=== PATIENT | female | born 1960 | race Caucasian/White ===

== ENCOUNTER → 2017-12-14 10:54 | Outpatient (CLI) | payer OTHER, SELFPAY ==
--- NOTE | 2017-12-14 10:57 | RAD_ITS ---
STUDY: X-RAY - LEFT KNEE REASON FOR EXAM: Female, 57 years old. Chronic pain TECHNIQUE: 4 view(s) of the knee. COMPARISON: None. FINDINGS: Normal visualized distal femur. Normal visualized proximal tibia and fibula. Normal proximal tibiofibular articulation. There is no demonstrated fracture. Normal medial femorotibial compartment. Normal lateral femorotibial compartment. Normal patellofemoral articulation. There is a soft tissue prominence in the suprapatellar region suggesting a small volume joint effusion. The soft tissue structures are unremarkable. RAD/Knee 4 or More Views IMPRESSION: Possible small effusion, otherwise negative. Electronically Signed: Jonathan Roberts MD at 16:54 EDT , Service support ,
== END ==
PROVIDERS: Family Provider Family Medicine; PCP Family Medicine; Visit Provider Family Medicine
DX: M25.562 Pain in left knee (principal)
CPT/HCPCS: 73564

== ENCOUNTER → 2017-12-16 14:55 | Outpatient (CLI) | payer OTHER, SELFPAY ==
--- NOTE | 2017-12-16 15:02 | VDLE_ITS ---
Reason For Study: LLE pain (knee) RIGHT LEFT CFV is compressible, spontaneous, phasic, GSV is normal. competent and demonstrates normal CFV is compressible, spontaneous, phasic, augmentation. competent, and demonstrates normal Procedure augmentation. Exam performed in department. FV is compressible, spontaneous, phasic, The exam was diagnostic. competent and demonstrates normal A preliminary report was called and/or faxed augmentation. to Dr. Eugene @ 3:30 pm @ [phone]. POP V is compressible, spontaneous, phasic, competent and demonstrates normal augmentation. T/P Trunk is compressible. PTV is compressible. LT PerV is compressible. Interpretation Summary Deep veins of the left lower extremity are patent and compressible segmentally. There is no evidence of left lower extremity deep vein thrombosis. Valvular competence appears intact within the proximal deep venous system on the left . The left greater saphenous vein appears patent and compressible segmentally. Ordering Physician: Mk Eugene Referring Physician: Davi Eugene Performed By: Adina Bryson, UZAIR, RVT
== END ==
PROVIDERS: Family Provider Family Medicine; PCP Family Medicine; Visit Provider Family Medicine
DX: M25.562 Pain in left knee (principal)
CPT/HCPCS: 93971

== ENCOUNTER 2017-12-17 15:35 | Emergency (ER) | payer OTHER, SELFPAY ==
[2017-12-17 15:36] VITALS: BP 168/84; PULSE 77; RESP 18; TEMP 37.2; O2SAT 99; BMI 32.5
[2017-12-17] MEDS: Triamcinolone Acetonide 40 MG/ML Vial IU (16:37)
[2017-12-17 16:38] VITALS: BP 135/75; PULSE 82; RESP 14; O2SAT 99
--- NOTE | 2017-12-17 17:02 | ED.VISSUMM ---
- ER Visit Summary Date of Service: 12/17/17 Chief Complaint: Atraumatic left knee pain History of Present Illness: The patient is a 57 F no significant past medical except for a prior DVT. Currently on no blood thinners or any other medication. She has had atraumatic left knee pain and swelling for about 2 months. Getting worse. No redness or fever. No trauma. No prior MRI. Follow-up your primary care physician had a negative leg ultrasound showed no DVT. An x-ray of her left knee which show joint space narrowing and small effusion. Physical Examination: Appearing middle-aged female. Vital signs are stable she is afebrile she does not look septic or toxic no acute distress. H EENT exam unremarkable lungs clear to auscultation. Heart regular rhythm no murmur. Abdomen soft nontender. She is moving all 4 extremities. Neurovascular intact. She is moving mild swelling in her left knee. No redness or warmth. There is a small effusion. She can do full flexion-extension. Dorsi plantar flexion intact. Hips nontender. Left foot is neurovascular intact. Ligaments are intact. Test Results: I reviewed patient's x-ray from several days ago. Basically she is joint space narrowing and a small effusion. No acute bony abnormalities. Her x-ray is consistent with chronic wear and tear and arthritis. Emergency Department Course and Treatment: Discussed with the patient and her . We did a knee joint injection of her left knee on the medial aspect. The area was cleaned thoroughly multiple times with alcohol swabs. I injected 10 cc of 40 mg of Kenalog and also about 10 cc of lidocaine. Patient tolerated procedure well. She was warned of any signs of infection return. Treatment Plan: Ice and elevate. Limited activity. Motrin for pain and inflammation. She will follow up with Dr. Noam Read of orthopedics. Disposition: Discharge Impression: Atraumatic left knee swelling and effusion Degenerative joint disease Knee joint injection with Kenalog and lidocaine by ER This note was generated with [employer] dictation software. It may contain incorrect words, spelling, and punctuation that were not noted in review of the chart prior to signing ED Disposition - Plan for ED Patient: Chief Complaint: Other, Pain/Inj Referrals: Davi Eugene MD [Primary Care Provider] -
--- NOTE | 2017-12-17 17:05 | ED.DCSUM_ITS ---
- ER Visit Summary Date of Service: 12/17/17 Chief Complaint: Atraumatic left knee pain History of Present Illness: The patient is a 57 F no significant past medical except for a prior DVT. Currently on no blood thinners or any other medication. She has had atraumatic left knee pain and swelling for about 2 months. Getting worse. No redness or fever. No trauma. No prior MRI. Follow -up your primary care physician had a negative leg ultrasound showed no DVT. An x-ray of her left knee which show joint space narrowing and small effusion. Physical Examination: Appearing middle-aged female. Vital signs are stable she is afebrile she does not look septic or toxic no acute distress. H EENT exam unremarkable lungs clear to auscultation. Heart regular rhythm no murmur. Abdomen soft nontender. She is moving all 4 extremities. Neurovascular intact. She is moving mild swelling in her left knee. No redness or warmth. There is a small effusion. She can do full flexion-extension. Dorsi plantar flexion intact. Hips nontender. Left foot is neurovascular intact. Ligaments are intact. Test Results: I reviewed patient's x-ray from several days ago. Basically she is joint space narrowing and a small effusion. No acute bony abnormalities. Her x-ray is consistent with chronic wear and tear and arthritis. Emergency Department Course and Treatment: Discussed with the patient and her . We did a knee joint injection of her left knee on the medial aspect. The area was cleaned thoroughly multiple times with alcohol swabs. I injected 10 cc of 40 mg of Kenalog and also about 10 cc of lidocaine. Patient tolerated procedure well. She was warned of any signs of infection return. Treatment Plan: Ice and elevate. Limited activity. Motrin for pain and inflammation. She will follow up with Dr. Noam Read of orthopedics. Disposition: Discharge Impression: Atraumatic left knee swelling and effusion Degenerative joint disease Knee joint injection with Kenalog and lidocaine by ER This note was generated with [employer] dictation software. It may contain incorrect words, spelling, and punctuation that were not noted in review of the chart prior to signing ED Disposition - Plan for ED Patient: Chief Complaint: Other, Pain/Inj Referrals: Davi Eugene MD [Primary Care Provider] -
--- NOTE | 2017-12-17 17:05 | ED.DEP ---
ED Disposition - Plan for ED Patient: Disposition: Home or Assisted Living Chief Complaint: Other, Pain/Inj Instructions: ED Degenerative Joint Disease Referrals: Naom Read DO [STAFF PHYSICIAN] - 1-2 Weeks Additional Instructions: Ice and elevate left knee to decrease swelling. Motrin for pain and decrease swelling. Call and follow-up with an orthopedic physician.
== END 2017-12-17 17:34 | disposition home or self-care (01) ==
PROVIDERS: Emergency Provider Emergency Medicine; Family Provider Family Medicine; PCP Family Medicine
DX: M17.12 Unilateral primary osteoarthritis, left knee (principal); Z86.718 Personal history of other venous thrombosis and embolism
CPT/HCPCS: 20610; 96374; 99281

== ENCOUNTER → 2018-01-03 15:32 | Outpatient (CLI) | payer OTHER, SELFPAY ==
--- NOTE | 2018-01-03 15:51 | MRI_ITS ---
STUDY: MRI LEFT KNEE REASON FOR EXAM: Female, 57 years old. Pain. TECHNIQUE: Standardized fat and water weighted pulse sequences were obtained in all 3 orthogonal planes. COMPARISON: X-ray December 14, 2017 FINDINGS: There is medial meniscus tear of the posterior horn adjacent to the meniscal root ligament, series 7 image 03/04. Normal hyaline cartilage of the medial femorotibial compartment. Normal medial femoral condyle and tibial plateau. There is a partial sprain of the MCL with interstitial and periligamentous edema. Normal distal semimembranosus, gracilis and semitendinosus tendons. Normal lateral meniscus. Normal hyaline cartilage of the lateral femorotibial compartment. Normal lateral femoral condyle and tibial plateau. Normal proximal tibiofibular articulation. Normal lateral collateral (fibular) ligament. Normal popliteus tendon. Normal biceps femoris tendon. Normal anterior cruciate ligament (ACL). Normal posterior cruciate ligament (PCL). Normal congruent patellofemoral articulation. Normal hyaline cartilage of the patellofemoral compartment. Normal medial and lateral patellar retinaculum. Normal quadriceps tendon. Normal patellar tendon. Normal Hoffa's fat pad. There is a small volume joint effusion. There is a Mcneill's cyst. The soft tissues are unremarkable. The otherwise visualized osseous structures are unremarkable. MRI/Lower Ext Joint Only (Routine) IMPRESSION: Medial meniscus tear Medial collateral ligament sprain Joint effusion with popliteal cyst Electronically Signed: Juan Crawford MD at 20:51 EDT , Service support ,
== END ==
PROVIDERS: Family Provider Family Medicine; PCP Family Medicine; Referring Provider Family Medicine; Visit Provider Family Medicine
DX: M25.562 Pain in left knee (principal)
CPT/HCPCS: 73721

== ENCOUNTER → 2018-04-30 10:52 | Outpatient (CLI) | payer OTHER, SELFPAY ==
--- NOTE | 2018-04-30 10:58 | BI_ITS ---
MAMMOGRAPHY - BILATERAL SCREENING REASON FOR EXAM: Female, 57 years old. Routine annual screening examination. PERTINENT HISTORY: Non-contributory. History of prior right stereotactic breast biopsy. TECHNIQUE: Digital bilateral breast oyel (3D mammographic acquisition) in the CC and MLO projections. 2-D mediolateral oblique (MLO) and craniocaudad (CC) views of both breasts were obtained. CAD: Full Field Digital Mammography with Computer Added Detection was performed. COMPARISON: Comparison is made with prior study dated March 15, 2017 and February 17, 2016. FINDINGS: Breast Composition: The breasts are heterogeneously dense, which may obscure small masses. There are no dominant masses or suspicious calcifications. Tissue clip marker is seen in the upper lateral portion of the right breast. No other significant abnormalities are identified. There has been no significant change since the prior study. BI/SCREENING MAMM (CAD), BILAT IMPRESSION: Stable bilateral screening mammogram. Yearly follow-up mammogram recommended. (A) ASSESSMENT CATEGORY: BIRADS Category 1: Negative. A letter regarding these results will be sent to the patient by the facility within 30 days. Approximately 10% of breast cancers are not detected by mammography. A normal mammogram should not delay biopsy of a clinically suspicious abnormality. [id number] Electronically Signed: Edson Castorena MD at 9:48 EST , Service support ,
== END ==
PROVIDERS: Family Provider Family Medicine; PCP Family Medicine; Referring Provider Family Medicine; Visit Provider Family Medicine
DX: Z12.31 Encounter for screening mammogram for malignant neoplasm of breast (principal)
CPT/HCPCS: 77063; 77067

== ENCOUNTER → 2018-08-26 08:40 | Outpatient (CLI) | payer OTHER, SELFPAY ==
[2018-08-26 10:18] LABS: Hematocrit 39.9 % (37-47); Mean Corp Hgb Conc 32.6 g/gl (32-36); Mean Corpuscular Hgb 29.3 pg (27.0-32.0); Mean Corpuscular Volume 90.1 fL (81-99); Platelet Count 264 K/mm3 (150-450); RBC Distribution Width CV 12.8 % (11.6-14.6); RBC Distribution Width SD 42.2 fl (35.1-43.9); Red Blood Count 4.43 M/mm3 (4.2-5.4); White Blood Count 6.3 K/mm3 (4.4-11.0)
[2018-08-26 10:20] LABS: Prothrombin Time (Protime)PT. 12.5 SECONDS (11.7-14.9)
[2018-08-26 10:21] LABS: Scan Indicated on CBC? Y/N NO
[2018-08-26 10:40] LABS: Anion Gap 4 (5-15); BUN 15 mg/dL (7-18); Calcium,Total 9.1 mg/dL (8.5-10.1); Chloride 108 mmol/L (98-107); Creatinine, Serum 0.75 mg/dL (0.55-1.02); EST Glomerular Filtration Rate 84 mL/min (>60); Est Glom Filt Rate - Afr Amer 101 mL/min (>60); Glucose 89 mg/dL (74-106); Potassium 5.1 mmol/L (3.5-5.1); Sodium Level 142 mmol/L (136-145)
== END ==
PROVIDERS: Family Provider Family Medicine; PCP Family Medicine; Referring Provider Family Medicine; Visit Provider Family Medicine
DX: Z01.818 Encounter for other preprocedural examination (principal)
CPT/HCPCS: 36415; 80048; 85027; 85610; 85730

== ENCOUNTER 2018-09-02 06:01 | Day surgery (SDC) | payer OTHER, SELFPAY ==
[2018-09-02 06:33] VITALS: BP 132/77; PULSE 79; RESP 18; TEMP 36.9; O2SAT 99; BMI 33.3
--- NOTE | 2018-09-02 07:16 | PCM.HP.BLA ---
History and Physical Date of Admission: 09/02/18 Intake Intake Visit Reasons: left knee Allergies No Known Allergies Allergy (Verified 12/17/17 16:38) Medications NK 12/17/17 [History Confirmed 12/17/17] [facility] Social History Smoking Status: Never smoker HPI left knee: Details: Parts of this documentation were recorded by a scribe, this documentation accurately reflects the service provided and the decisions made by me, Myranda Corley, DO 08/16/18 1232. RACHAEL ROMERO is a 57 year old F new patient here today for left knee. States she has had knee pain since December 2017. Patient has x-rays and MRI completed in 01/2018. Has medial sided tenderness. Has stiffness of her knee, denies any painful/popping/clicking. Does feel that he knee gives out occasionally. Denies any surgery. Denies numbness, tingling or other associated symptoms. Has had 2 steroid injections 1 in December 2017 and the 2nd in 03/[address] Queen. States the injections where helpful for 3 months the first time and 5 months with the second injection. Denies any PT. Has tried OTC braces but does not feel they are helpful. Does use ice which is helpful. Does take Aleve. Denies any Mobic. Does report having a bakers cyst. Had a pulmonary embolism in 2002 was treated with Coumadin and then has had no concerns since. ROS Const Reports system reviewed and no additional complaints, except as docu Eyes Reports system reviewed and no additional complaints, except as docu ENT Reports system reviewed and no additional complaints, except as docu Card Reports system reviewed and no additional complaints, except as docu Resp Reports system reviewed and no additional complaints, except as docu GI Reports system reviewed and no additional complaints, except as docu Musc Reports as per HPI Skin/Breast Reports system reviewed and no additional complaints, except as docu Neuro Yes system reviewed and no additional complaints, except as docu Psych Reports system reviewed and no additional complaints, except as docu Endo Reports system reviewed and no additional complaints, except as docu Kameron/Lymph Reports system reviewed and no additional complaints, except as docu Aller/Immun Reports system reviewed and no additional complaints, except as docu I have re-examined the patient. There are no clinical changes since date of exam. Ortho Exam Left Knee Skin/Wound: No ecchymosis, No erythema Examination: Yes med jt line tenderness, Yes Pain with flexion, Yes Raymond's Test, No TTP Patellar tendon, Yes TTP Pes Anserine Stability: NML: Anterior Drawer, NML: Posterior Drawer, NML: Varus 30, 1+: Valgus 30 Assessment & Plan Problems 1. Derangement of posterior horn of medial meniscus of left knee M23.322 2. Synovial cyst of left popliteal space M71.22 Plan Personally reviewed patients left knee MRI which showed a posterior meniscal root tear and a bakers cyst. See imaging report in chart for further details. Educated the patient about the anatomy of the knee and etiology of her pain. Spoke with her about her meniscus tear and the surgery procedure. Spoke with her about other conservative options- injections, physical therapy or bracing. Explained that she might be a candidate for a mensicus repair depending on the appearance of the meniscus of surgery. She will be toe touch weightbearing for 6 weeks if she has a meniscus repair. She might continue to have achiness due to osteoarthritis. Spoke with her about the risks of multiple steroid injections. She wished to proceed with knee arthroscopy. Reviewed the pre-operative plans with the patient. Risks and benefits of the procedure were fully explained, including but not limited to infection, neurovascular injury, continued pain, arthritis, stiffness, need for further surgery, re-injury, DVT, PE, general risks of anesthesia, and loss of limb or life. The patient understands all the risks and does wish to proceed with written consent. Needs postop anticoagulation. will discuss with pcp about lovenox psotop d/t PE. Follow up on an as needed basis or sooner if pain, swelling, numbness or associated symptoms, or concerns develop. All questions answered. Patient in agreement of plan. Coding Level of Care Code Off vis,new,level 3 Diagnoses Derangement of posterior horn of medial meniscus of left knee M23.322 Synovial cyst of left popliteal space M71.22 Laterality: left
--- NOTE | 2018-09-02 07:22 | DCINST_ITS ---
Discharge Diet: No Restrictions - wbat left LE, remove dressings in 4 days and apply bandaids to incision sites, may get incision wet after 4 days, call with concerns, follow up in 2 weeks Discharge Activity: May Not Drive May shower in (days): 1 Ice area for (Minutes): 20 - Every hour while awake. Weight Bearing Status: Weight bearing as tolerated Keep extremity elevated above heart level: Operative Extremity Call your doctor if your incision/area has: Continuous Slow Oozing, Sudden Increased Bleeding, Increased Pain/ Swelling, Increased Redness, Foul Smelling Discharge Call your doctor if you observe: Fever of 101 or Higher, Coldness, Increased Pain, Numbness or Tingling, Change in Color, Calf discomfort Allergies/Adverse Reactions: Allergies No Known Allergies Allergy (Verified 08/24/18 09:02) Medications to take at Discharge Hydrocodone Bitart/Apap 5-325 [[place] 5MG-325MG] 1 - 2 tablet PO Q6H PRN PRN 5 Days #40 tablet 09/02/18 The following prescriptions were given: Hydrocodone Bitart/Apap 5-325 [[place] 5MG-325MG] 1 - 2 tablet PO Q6H PRN PRN 5 Days #40 tablet PRN Reason: Pain Primary Care Physician: Davi Eugene MD [Primary Care Provider] - Test Results: Test results from this visit will be discussed in further detail at your follow- up appointment, if applicable. Please Follow Up With: Myranda Corley, - [phone]
--- NOTE | 2018-09-02 07:22 | PCM.OPRPT ---
Report of Operation Date of Procedure: 09/02/18 Pre-Operative Diagnosis: left knee medial meniscus tear, osteoarthritis, synovitis Post-Operative Diagnosis: same Surgery/Procedure Performed:: salk, pmm, extensive synovectomy, patella chondroplasty chain sales consultant: Yuri Ravi Type of Anesthesia:: General Anesthesiologist: Matt Epps Estimated Blood Loss (mL): none Fluids Replaced: 800cc lr Description of Procedure: Preoperative note Patient is a 57-year-old female with continued left knee pain and clicking and instability. MRI confirms medial meniscus tear is some arthritis. Patient failed conservative treatment like to proceed with left knee arthroscopy. Risks benefits and alternatives surgery discussed with patient. Risks including but not limited to blood loss, blood clot, infection, neurovascular, failure procedure, need for revision surgery, loss of life and loss of limb. Patient is aware like proceed with left knee arthroscopy repair is indicated. Operative note next Patient seen and examined preoperative failure. The left knee was marked. Patient brought to the operating room placed supine the operating table. Signing, anesthesia, antibiotics were administered. The left knee was prepped and draped in usual sterile fashion with a tourniquet around her upper thigh. Marked out our portal placements left leg was then elevated exsanguinated tourniquet tourniquet was raised her pressure 250 torr. Timeout was performed. We then created an anterior lateral portal and began our diagnostic arthroscopy. We are able to visualize patellofemoral joint had some grade 2 fibrillated changes on the inferior pole of patella. We are unable to get easily into the medial joint line due to the effusion large plica and synovitis in the anterior medial and anterior lateral recesses of the and anterior medial aspect of the knee. We then repositioned into the notch is a trocar to get back into the medial side of the joint. We then created an anterior medial portal under direct visualization again this is difficult secondary to the amount of synovitis the patient had. We used a shaver to resect back the extensive synovitis in the anterior medial anterior lateral recesses. We took pictures of the medial lateral gutters there were no loose bodies. We then probed the posterior horn of the medial meniscus which was unstable but the actual root was intact and stable to probing the tear was just medial to the root we use a combination of a basket and a shaver to debride back the meniscus to a stable rim we then reinserted a shaver into the need to probe the meniscus to confirm that it was still stable to probing which it was. We there is some irritation in the posterior aspect of the some redness that we did ablate to prevent further leakage of the knee fluid out into the back of the knee which was causing her Mcneill's cyst. The ACL and PCL were present within the notch. Her lateral meniscus was intact stable probing. She had a central area in her lateral tibial plateau grade 2 fibrillated changes her medial arm starting her lateral femoral condyle was intact and stable probing. Her medial femoral condyle had grade 3 thinning of the cartilage throughout the entirety there was a small area that was denuded to bone secondary fact that she had arthritic changes and since then cartilage throughout we decided not to microfracture at this time. She also had grade 3 changes of her medial tibial plateau throughout worse in the centralized area and medial aspect of the medial tibial plateau. The knee was then irrigated with copious nonsterile saline we checked her patella chondroplasty synovitis synovectomy and medial meniscectomy to confirm that all were done to completion of her stable which they all were. Again the knee was irrigated with copious amounts of sterile saline the portals were closed with interrupted nylon shoulders were applied and tourniquet was deflated for total working time 32 minutes. Patient tolerated procedure well no complications transferred to recovery room in stable condition. Next Postoperative note Weight-bear as tolerated left leg Follow-up in 2 weeks Hospital has prescription Call with increased pain numbness tingling or further issues arise This note was generated with [employer] dictation software. It may contain incorrect words, spelling, and punctuation that were not noted in checking the note before signing.
[2018-09-02] MEDS: Cefazolin 2 GM in 0.9% Normal Saline 100 ML IV (07:28)
[2018-09-02] MEDS: Epinephrine (1 mg/ml) 1 MG/ML VIAL (07:45)
[2018-09-02] MEDS: Bupiv/Epi 0.25% 30 ML Vial (08:00)
[2018-09-02] MEDS: Mupirocin Ointment 22gm Tube 1 APPLIC (08:17)
[2018-09-02 08:30] VITALS: BP 132/77; BP 169/92; PULSE 89; RESP 16; TEMP 36.2; O2SAT 94
[2018-09-02 08:45] VITALS: BP 132/77; BP 137/75; PULSE 80; RESP 18; O2SAT 93
[2018-09-02 09:00] VITALS: BP 132/77; BP 135/85; PULSE 83; RESP 16; O2SAT 94
[2018-09-02 09:13] VITALS: BP 132/77; BP 132/79; PULSE 85; RESP 18; TEMP 36; O2SAT 95
[2018-09-02 12:38] VITALS: BP 118/68; BP 132/77; PULSE 67; RESP 16; TEMP 36.2; O2SAT 93
== END 2018-09-02 12:43 | disposition home or self-care (01) ==
LOC: SDC 06:01 → AC 06:04
PROVIDERS: Family Provider Family Medicine; PCP Family Medicine; Referring Provider Orthopaedic Surgery; Visit Provider Orthopaedic Surgery
PROC: (CPT 29870; principal; 2018-09-02 07:10)
DX: S83.242A Other tear of medial meniscus, current injury, left knee, initial encounter (principal); M17.12 Unilateral primary osteoarthritis, left knee; M71.22 Synovial cyst of popliteal space [Baker], left knee; M65.862 Other synovitis and tenosynovitis, left lower leg; X58.XXXA Exposure to other specified factors, initial encounter; Y93.9 Activity, unspecified; Y92.9 Unspecified place or not applicable; Y99.9 Unspecified external cause status; Z78.0 Asymptomatic menopausal state; Z86.711 Personal history of pulmonary embolism
CPT/HCPCS: 29876; 29881; J7120; J2405

== ENCOUNTER 2018-10-02 13:26 | Emergency (ER) | payer OTHER, SELFPAY ==
[2018-09-15 07:58] VITALS: BMI 33.3
[2018-10-02 13:27] VITALS: BP 163/84; PULSE 101; RESP 16; TEMP 36.7; O2SAT 95; BMI 32.8
--- NOTE | 2018-10-02 13:38 | ED.VIS.GEN ---
History of Present Illness <Noam Dubon - Last Filed: 10/02/18 14:14> Informant: Patient Onset: Days Narrative: Patient presents to the ED with left lower extremity swelling and left posterior calf pain for the last 3 days. She had a left knee arthroscopy done on September 02, [address] Ferguson for meniscal repair and Mcneill's cyst. She was concerned because her left calf feels tighter than normal. She did just start PT last week. She was concerned that she does have a history of lower extremity DVT with her last being in 2002. Denies any chest pain or shortness of breath. <Samantha Godoy - Last Filed: 10/02/18 14:20> Chief Complaint: Lower Extremity Injury Past Medical History <Noam Dubon - Last Filed: 10/02/18 14:14> Smoking Status: Never smoker <Samantha Godoy - Last Filed: 10/02/18 14:20> - Allergies and Home Meds Allergies/Adverse Reactions: Allergies No Known Allergies Allergy (Verified 08/24/18 09:02) Primary Care Physician: Davi Eugene MD [Primary Care Provider] - Review of Systems General: Denies: Chills, Fever, Sweats Eyes: Denies: Visual changes - bilaterally, Diplopia ENT: Denies: Rhinorrhea, Sore throat Cardiovascular: Denies: Chest pain, Palpitations Respiratory: Denies: Dyspnea, Cough, Dyspnea on exertion Gastrointestinal: Denies: Abdominal pain, Nausea, Vomiting, Diarrhea, Melena, Hematochezia Genitourinary: Denies: Dysuria, Hematuria, Frequency Musculoskeletal: Reports: Swelling, Extremity Pain. Denies: Back pain Skin: Denies: Rash, Wounds Neurological: Denies: Headache, Weakness, Numbness <Samantha Godoy - Last Filed: 10/02/18 14:20> Physical Exam Vital Signs/Narrative: Vital Signs Temp Pulse Resp BP Pulse Ox 10/02/18 13:27 98.0 F 101 H 16 163/84 H 95 <Noam Dubon - Last Filed: 10/02/18 14:14> Vital Signs/Narrative: Vital Signs Temp Pulse Resp BP Pulse Ox 10/02/18 13:27 98.0 F 101 H 16 163/84 H 95 General: Well nourished, Well developed, No Acute Distress Head: Normocephalic, Atraumatic Eyes: Perrl, EOMI ENT: Moist mucous membranes, No rhinorrhea Neck: Supple, Nontender Cardiovascular: Regular rate, Regular rhythm, No murmurs Respiratory: No distress, CTA bilaterally, Chest nontender Abdomen: Soft, Nontender, Nondistended, Normal bowel sounds Back: Nontender, Normal Inspection Extremities: Nontender, No edema, Calf Tenderness - L posterior, - - Mild asymmetric edema of the left lower extremity. No significant erythema. No palpable cords. Patient is tender to palpation over the left posterior proximal calf. DP and PT pulses 2+ bilaterally. Skin: Normal color, No rash Neurological: Alert, Oriented x3, Cranial nerves II-XII grossly intact, Normal Strength, Normal Sensation Psychological: Normal affect, Normal Mood <Samantha Godoy - Last Filed: 10/02/18 14:20> Diagnostic/Tx/Re-eval - Medical Decision Making As it was Wednesday, we did not have formal ultrasound available. The patient's compartments are soft. Her incisions are clean, dry, and intact. Pulses are normal. I did do a bedside ultrasound. Her entire venous system is compressible. I see no evidence of DVT. I have no clear indication for anticoagulation patient at this time. I am going to bring her back for formal ultrasound tomorrow. Patient is comfortable with this plan of care. <Noam Dubon - Last Filed: 10/02/18 14:14> - Medical Decision Making Patient presents to the ED with increased left lower extremity swelling for 3 days. She did have a left knee arthroscopy done on September 02. She is a history of DVT. Physical exam did show mild left lower extremity edema and some left proximal posterior calf tenderness. Bedside ultrasound done by Dr. Dubon shows no evidence of DVT. At this time, we feel patient does not warrant anticoagulation. She was given an order for an outpatient ultrasound and will return tomorrow for confirmation of no DVT. She was educated on signs/symptoms to return to the ED. She is provided discharge instructions. She is agreeable to plan. Disposition: Home stable Impression: Left lower extremity edema. Recent history of L knee arthroscopy. <Samantha Godoy - Last Filed: 10/02/18 14:20> ED Disposition <Noam Dubon - Last Filed: 10/02/18 14:14> <Samantha Godoy - Last Filed: 10/02/18 14:20> - Plan for ED Patient: Disposition: Home or Assisted Living Diagnosis: Left leg swelling Instructions: PERIPHERAL EDEMA, Unilateral Referrals: Davi Eugene MD [Primary Care Provider] - Additional Instructions: Return tomorrow to outpatient ultrasound
== END 2018-10-02 14:17 | disposition home or self-care (01) ==
PROVIDERS: Emergency Provider Physician Assistant; Family Provider Family Medicine; PCP Family Medicine
DX: R60.0 Localized edema (principal); M79.662 Pain in left lower leg; M79.89 Other specified soft tissue disorders; Z86.718 Personal history of other venous thrombosis and embolism
CPT/HCPCS: 99282

== ENCOUNTER → 2018-10-03 13:26 | Outpatient (CLI) | payer OTHER, SELFPAY ==
[2018-10-02 13:27] VITALS: BMI 32.8
--- NOTE | 2018-10-03 13:30 | VDLE_ITS ---
Reason For Study: Swelling RIGHT LEFT CFV is compressible, spontaneous, phasic, GSV is normal. competent and demonstrates normal CFV is compressible, spontaneous, phasic, augmentation. competent, and demonstrates normal Procedure augmentation. Exam performed in department. FV is compressible, spontaneous, phasic, A preliminary report was called and/or faxed competent and demonstrates normal to Dr. Eugene. augmentation. POP V is compressible, spontaneous, phasic, competent and demonstrates normal augmentation. T/P Trunk is compressible. PTV is compressible. LT PerV is compressible. Interpretation Summary Deep veins of the left lower extremity are patent and compressible segmentally. There is no evidence of left lower extremity deep vein thrombosis. Valvular competence appears intact within the proximal deep venous system on the left . The left greater saphenous vein appears patent and compressible segmentally. Ordering Physician: Noam Dubon Referring Physician: Mk Eugene Performed By: Ellie Hull RDCS, RVT
== END ==
PROVIDERS: Family Provider Family Medicine; PCP Family Medicine; Referring Provider Emergency Medicine; Visit Provider Emergency Medicine
DX: M79.89 Other specified soft tissue disorders (principal)
CPT/HCPCS: 93971

== ENCOUNTER 2018-11-15 15:30 | Outpatient (RCR) | payer OTHER, SELFPAY ==
[2018-09-15 07:58] VITALS: BMI 33.3
--- NOTE | 2018-09-23 07:55 | HP.PTEVAL ---
Patient's Visit Information RACHAEL ROMERO is a 57 year old F referred to Physical Therapy by Myranda Corley DO with a diagnosis of S/P L knee PMM repair. Date of Evaluation: 09/23/18 Physical Therapist: Isaiah Plata PT, ATC - Visit Plan Frequency: 2-3x /Week Duration: 4-6 Weeks Plan: L LE stretching and strengthening, balance and prorio ex's, core strengthening, bike, and HEP - Subjective Findings: DOS: 09/02/18. Pt reports she had a posterior medial meniscus repair performed. Pt reports she had an old softball injury that she thinks may have lead to this tear many years ago. Pt reports she had no restrictions placed on her after this surgery. Pt reports she is back to work now at [employer]. Pt reports she is now able to negotiate stairs receprocally. Pt reports her major complaint at this time is stiffness that still exists. No sleep difficulty at this time secondary to pain. Pt reports she walks her dogs daily, and notes she is unable to do that at this time. 1/10 pain at rest, 3/10 at worst (by the end of the day). - Pain L knee Pain Intensity (Out of 10): 1 Pain Intensity Range: 3 - Objective Neuro: B LE sensation is WNL to light touch. B achilles reflex= 2/3. girth at joint line: R knee 45 cm, L knee 48 cm. Palpation: Incisions are still healing. No obvious signs of infection. Mild swelling noted. ROM: R knee 0-125, L knee 0-12-85. MMT: R knee 5/5 throughout, L knee flex= 4-/5, ext= 3/5 - Goals Goal 1:: Decrease L knee pain x 50% to aid with increasing tolerance for ADL's Goal Time Frame: 4-6 Weeks Goal 2:: Increase L knee strength x 1 grade to aid with pt's tolerance for walking her dogs Goal Time Frame: 4-6 Weeks Goal 3:: Increase L knee ROM x 30 degrees to aid with restoring a more normalized gait pattern Goal Time Frame: 4-6 Weeks Goal 4:: I with HEP Goal Time Frame: 4-6 Weeks - Rehabilitation Potential Physical Therapy Diagnosis: Pt has L knee pain, weakness, and limited ROM secondary to L knee posterior medial meniscus repair Rehabilitation Potential: Good - Anticipated Interventions Patient/Client Instruction: Educate patient on: Condition, Plan of Care For the Purpose of:: To improve self management Therapeutic Exercise to Include: Strength training, Balance training, Flexibilty training, Passive ROM, Active ROM, Dynamic Lumbar Stabilization For the Purpose of:: To decrease pain, To increase ROM, To improve muscle performance and motor function Cryotherapy (ice pack, ice massage): Yes For the Purpose of:: To decrease pain Thank you for the opportunity to evaluate your patient. For Medicare and Medicare HMO plans, please review the plan of care and approve it. It will need to be FAXED BACK to us at [phone] for Medicare purposes. For Medicare only, by signing this I certify the plan of care. Please let me know if there are questions or concerns regarding this plan of care. Physician Signature: Date:
--- NOTE | 2018-10-20 16:27 | HP.PTREVAL_ITS ---
Myranda Corley, DO, It has been my pleasure to treat RACHAEL ROMERO over the last 12 visits for S/P L knee PMM repair. Please see the progress note below for an update on the physical therapy plan of care! Subjective: No pain this date Objective/Function: L knee pain ranges from 0/10 to 3/10 at worst. L knee ROM: 0-8-112. L knee MMT 4+/5. Pt is progressing well toward Rx goals Plan Plan: Cont 1 x per week for 4 more weeks Goals Goal 1:: Decrease L knee pain x 50% to aid with increasing tolerance for ADL's Goal Time Frame: 4-6 Weeks Goal 2:: Increase L knee strength x 1 grade to aid with pt's tolerance for walking her dogs Goal Time Frame: 4-6 Weeks Goal 3:: Increase L knee ROM x 30 degrees to aid with restoring a more normaliz ed gait pattern Goal Time Frame: 4-6 Weeks Goal 4:: I with HEP Goal Time Frame: 4-6 Weeks Anticipated Interventions Patient/Client Instruction: Educate patient on: Condition, Plan of Care For the Purpose of:: To improve self management Therapeutic Exercise to Include: Strength training, Balance training, Flexibilty training, Passive ROM, Active ROM, Dynamic Lumbar Stabilization For the Purpose of:: To decrease pain, To increase ROM, To improve muscle performance and motor function Cryotherapy (ice pack, ice massage): Yes For the Purpose of:: To decrease pain Please do not hesitate to contact me at [phone] by phone or if you have questions or concerns regarding this new plan of care! Sincerely, Isaiah Plata, PT, ATC
--- NOTE | 2018-11-15 16:25 | HP.PTREVAL ---
Myranda Corley, DO, It has been my pleasure to treat RACHAEL ROMERO over the last 16 visits for S/P L knee PMM repair. Please see the progress note below for an update on the physical therapy plan of care! Subjective: No pain this date Objective/Function: L knee pain 0/10. L knee ROM: 0-110 degrees. L knee MMT: 5/5 throughout. I with HEP. Rx goals achieved Plan Plan: Recheck in 3 weeks Goals Goal 1:: Decrease L knee pain x 50% to aid with increasing tolerance for ADL's Goal Time Frame: 4-6 Weeks Goal 2:: Increase L knee strength x 1 grade to aid with pt's tolerance for walking her dogs Goal Time Frame: 4-6 Weeks Goal 3:: Increase L knee ROM x 30 degrees to aid with restoring a more normalized gait pattern Goal Time Frame: 4-6 Weeks Goal 4:: I with HEP Goal Time Frame: 4-6 Weeks Anticipated Interventions Patient/Client Instruction: Educate patient on: Condition, Plan of Care For the Purpose of:: To improve self management Therapeutic Exercise to Include: Strength training, Balance training, Flexibilty training, Passive ROM, Active ROM, Dynamic Lumbar Stabilization For the Purpose of:: To decrease pain, To increase ROM, To improve muscle performance and motor function Cryotherapy (ice pack, ice massage): Yes For the Purpose of:: To decrease pain Please do not hesitate to contact me at [phone] by phone or if you have questions or concerns regarding this new plan of care! Sincerely, Isaiah Plata, PT, ATC
--- NOTE | 2019-02-06 16:00 | HP.PT.NRP ---
HP - Discharge Summary (1) - Patient Information RACHAEL ROMERO was seen in my office for initial evaluation on 09/23/18. The following Plan of Care was established for this patient: Initial Frequency: 2-3x /Week Initial Duration: 4-6 Weeks - Anticipated Interventions Patient/Client Instruction: Educate patient on: Condition, Plan of Care For the Purpose of:: To improve self management Therapeutic Exercise to Include: Strength training, Balance training, Flexibilty training, Passive ROM, Active ROM, Dynamic Lumbar Stabilization For the Purpose of:: To decrease pain, To increase ROM, To improve muscle performance and motor function Cryotherapy (ice pack, ice massage): Yes For the Purpose of:: To decrease pain This patient was last seen in our office . Pertinent comments regarding their Physical therapy will appear below: Pt was treated for 16 PT visits for her L knee pain through the date of 11/18/18. Pt has not returned through todays date, and is discontinued at this time. At this point I will be discontinuing this patient from physical therapy. I would be happy to see this patient again in the future if found appropriate by the physician. Thank you! Isaiah Plata, PT, ATC
== END 2018-11-15 19:00 | disposition home or self-care (01) ==
LOC: PT 15:30
PROVIDERS: Family Provider Family Medicine; PCP Family Medicine; Referring Provider Orthopaedic Surgery; Visit Provider Orthopaedic Surgery
DX: Z98.890 Other specified postprocedural states (principal)
CPT/HCPCS: 97110; 97161; 97530

== ENCOUNTER → 2019-01-16 17:49 | Outpatient (CLI) | payer OTHER, SELFPAY ==
[2018-11-28 08:15] VITALS: BMI 32.8
[2019-01-19 16:57] LABS: HPV Reflexed? NOT INDICATED
== END ==
PROVIDERS: Family Provider Family Medicine; PCP Family Medicine; Referring Provider Nurse Practitioner Adult Health; Visit Provider Nurse Practitioner Adult Health
DX: Z01.419 Encounter for gynecological examination (general) (routine) without abnormal findings (principal)
CPT/HCPCS: 88175; G0145

== ENCOUNTER → 2019-08-25 09:54 | Outpatient (CLI) | payer OTHER, SELFPAY ==
[2018-11-28 08:15] VITALS: BMI 32.8
--- NOTE | 2019-08-25 10:03 | RAD_ITS ---
STUDY: X-RAY - LEFT ANKLE REASON FOR EXAM: Pain and swelling, fall yesterday. TECHNIQUE: 3 view(s) of the ankle. COMPARISON: None. FINDINGS: Normal visualized distal tibia and fibula. Normal medial and lateral malleoli. Normal tibiotalar articulation and ankle mortise. There is a plantar calcaneal enthesophyte. The visualized subtalar, talonavicular, calcaneocuboid and tarsal articulations are normal. There are orthopedic screws in the first and fifth metatarsals. There is soft tissue swelling overlying the lateral malleolus. RAD/Ankle min 3 Views IMPRESSION: Soft tissue swelling. No demonstrated fracture. Electronically Signed: Missael Lazcano MD at 12:14 EDT Tel , Service support ,
== END ==
PROVIDERS: PCP Family Medicine; Referring Provider Family Medicine; Visit Provider Family Medicine
DX: M25.572 Pain in left ankle and joints of left foot (principal)
CPT/HCPCS: 73610

== ENCOUNTER → 2020-03-14 | Outpatient (CLI) | payer OTHER, SELFPAY ==
[2018-11-28 08:15] VITALS: BMI 32.8
== END | disposition home or self-care (01) ==
LOC: LABSPEC 16:39
PROVIDERS: PCP Family Medicine; Referring Provider Family Medicine; Visit Provider Family Medicine
DX: U07.1 COVID-19 (principal)
CPT/HCPCS: 87635; U0003

== ENCOUNTER → 2021-01-13 15:23 | Outpatient (CLI) | payer OTHER, SELFPAY ==
--- NOTE | 2021-01-13 15:36 | RAD_ITS ---
HISTORY: pain in left knee EXAMINATION/TECHNIQUE: XR Knee Complete 4 Views or More: COMPARISON: 12/14/17 FINDINGS: BONES/JOINTS: No acute fracture or dislocation. Stable mild degenerative changes. No sclerotic or destructive changes observed. SOFT TISSUES: No soft tissue swelling or gas. No radiopaque foreign body. RAD/Knee 4 or More Views IMPRESSION: Degenerative changes without acute bony abnormality. at 1539 Reported and signed by: Eliseo Panchal MD Electronically Signed: Eliseo Panchal MD at 15:38 EDT Tel , Service support ,
== END ==
PROVIDERS: PCP Family Medicine; Referring Provider Family Medicine; Visit Provider Family Medicine
DX: M25.562 Pain in left knee (principal)
CPT/HCPCS: 73564

== ENCOUNTER → 2021-09-12 | Outpatient (CLI) | payer OTHER, SELFPAY ==
--- NOTE | 2021-09-12 09:37 | RAD_ITS ---
STUDY: X-RAY - RIGHT ANKLE REASON FOR EXAM: Female, 60 years old. INJURY TECHNIQUE: 3 view(s) of the ankle. COMPARISON: None. FINDINGS: Normal visualized distal tibia and fibula. Normal medial and lateral malleoli. Normal tibiotalar articulation and ankle mortise. Normal visualized talus and calcaneus. Small plantar and posterior calcaneal enthesophytes. The visualized subtalar, talonavicular, calcaneocuboid and tarsal articulations are normal. The soft tissue structures are unremarkable. RAD/Ankle min 3 Views IMPRESSION: Normal x-ray examination of the ankle. Electronically Signed: Travis Perera MD at 9:59 EDT ,
--- NOTE | 2021-09-12 09:40 | RAD_ITS ---
STUDY: X-RAY - RIGHT FOOT CLINICAL: Female, 60 years old. INJURY TECHNIQUE: 3 view(s) of the foot. COMPARISON: None. FINDINGS: Normal talus, calcaneus, and tarsal bones. Small plantar posterior calcaneal enthesophytes. Normal visualized subtalar, talonavicular, calcaneocuboid, tarsal and tarsometatarsal articulations. Normal metatarsi. Normal metatarsophalangeal joint of the great toe. There is a bipartite tibial sesamoid. Normal interphalangeal joint of the great toe. Normal phalanges of the great toe. Normal second through fifth metatarsophalangeal joints. Normal interphalangeal joints and phalanges of the lesser toes. The soft tissue structures are unremarkable. RAD/Foot min 3 Views IMPRESSION: Normal x-ray examination of the foot. Electronically Signed: Travis Perera MD at 9:58 EDT ,
== END | disposition home or self-care (01) ==
LOC: MTRAD 09:34
PROVIDERS: PCP Family Medicine; Referring Provider Family Medicine; Visit Provider Family Medicine
DX: M79.671 Pain in right foot (principal)
CPT/HCPCS: 73610; 73630

== ENCOUNTER → 2021-10-14 | Outpatient (CLI) | payer OTHER, SELFPAY ==
--- NOTE | 2021-10-14 09:20 | RAD_ITS ---
STUDY: X-RAY - RIGHT ANKLE REASON FOR EXAM: Female, 61 years old. Painful distal tibia with. TECHNIQUE: 3 view(s) of the ankle. COMPARISON: 09/12/2021. FINDINGS: Normal visualized distal tibia and fibula. Normal medial and lateral malleoli. Normal tibiotalar articulation and ankle mortise. Stable calcaneal spurs. The visualized subtalar, talonavicular, calcaneocuboid and tarsal articulations are normal. The soft tissue structures are unremarkable. RAD/Ankle min 3 Views IMPRESSION: Stable calcaneal spurs. No other abnormality. Electronically Signed: Velasquez Vidal MD at 10:27 EDT ,
[2021-10-14 10:44] LABS: International Normalized Ratio 0.9; Partial Thromboplast Time 32.3 Seconds (24.1-36.2); Prothrombin Time (Protime)PT. 11.9 SECONDS (11.7-14.9)
[2021-10-14 10:51] LABS: Absolute Lymphocyte Count 1.49 X10^3/uL (0.83-4.51); Absolute Neutrophil Count 3.5 X10^3/uL (2.0-7.7); Basophil# 0.02 X10^3/uL; Basophil% 0.4 % (0-1); Eosinophil# 0.14 X10^3/uL; Eosinophils% 2.5 % (0-5); Hematocrit 40.4 % (37-47); Hemoglobin 13.2 g/dL (12.0-15.0); Lymphocyte # 1.49 X10^3/ul (0.83-4.51); Mean Corp Hgb Conc 32.7 g/dL (32-36); Mean Corpuscular Volume 91.8 fL (81-99); Mean Platelet Vol. 12.5 fl (6.2-12.0); Monocyte# 0.41 X10^3/uL; Monocyte% 7.4 % (0-10); NRBC Flagged by Analyzer 0 % (0-5); Neutrophil # 3.45 X10^3/uL (2.7-7.7); Neutrophil % 62.5 % (47-70); Platelet Count 236 K/mm3 (150-450); RBC Distribution Width CV 12.9 % (11.6-14.6); RBC Distribution Width SD 43.5 fl (35.1-43.9); White Blood Count 5.5 K/mm3 (4.4-11.0)
[2021-10-14 10:54] LABS: Erythrocyte Sedimentation Rate 17 mm/hr (0-30)
[2021-10-14 10:57] LABS: Vitamin D,25 Hydroxy 28.1 ng/mL
[2021-10-14 11:13] LABS: Anion Gap 4 (5-15); BUN 17 mg/dL (7-18); BUN/Creat Ratio 26.3 RATIO (10-20); Calcium,Total 9.1 mg/dL (8.5-10.1); Chloride 108 mmol/L (98-107); Creatinine, Serum 0.65 mg/dL (0.55-1.02); EST Glomerular Filtration Rate 98 mL/min (>60); Est Glom Filt Rate - Afr Amer 119 mL/min (>60); Glucose 79 mg/dL (74-106); Potassium 3.9 mmol/L (3.5-5.1); Sodium Level 141 mmol/L (136-145)
== END | disposition home or self-care (01) ==
LOC: MTLAB 09:14
PROVIDERS: PCP Family Medicine; Referring Provider Family Medicine; Visit Provider Family Medicine
DX: Z01.818 Encounter for other preprocedural examination (principal); M79.604 Pain in right leg; E55.9 Vitamin D deficiency, unspecified
CPT/HCPCS: 36415; 73610; 80048; 82306; 85025; 85610; 85652; 85730

== ENCOUNTER 2021-11-23 06:49 | Emergency (ER) | payer OTHER, SELFPAY ==
[2021-11-23 06:50] VITALS: BP 153/96; PULSE 117; RESP 20; TEMP 36.5; O2SAT 97; BMI 34.2
--- NOTE | 2021-11-23 07:13 | ED.VIS.CHEST ---
HPI History of Present Illness Chief Complaint: Chest Pain Informant: patient Onset/Context/Timing Onset: Today Activity at onset: sudden Timing: Continuous Quality: Positive for Sharp Location: Right Chest Worsened By: Breathing Relieved By: Nothing Associated Symptoms: Negative for Nausea, Vomiting, Diaphoresis, Dyspnea, Cough, Fever, Lightheadedness, Acid Reflux or Palpitations Narrative Narrative: Patient presents with chest pain that began earlier this morning. Patient states it woke her up approximately 5 hours prior to arrival. Patient states it is constant. Patient states it is over the right side of her chest. Patient describes the pain as sharp. Patient states it is worse with breathing. Patient states nothing seems to help with it. Patient denies any nausea or vomiting. Patient denies any shortness of breath. Patient denies any diaphoresis. Patient denies any palpitations. Patient has a history of a prior pulmonary embolism several years ago. Patient is not currently on any anticoagulants. CVD Risk Factors: Negative for Hypertension, Diabetes, Hypercholesterolemia, Family History 1' </=55 or Smoking PE Risk Factors: Positive for Recent Travel/Surgery and Prior DVT or PE; Negative for Recent Immobilization, Cancer or OCP + Smoking + >/=35 PFSH [facility] Medical History Pulmonary emboli Home Medications apixaban 5 mg tablet (Eliquis) 5 mg PO BID #74 tabs 11/23/21 [Rx Last Taken Unknown] aspirin 81 mg tablet 81 mg PO BID 11/23/21 [History Last Taken Unknown] oxycodone-acetaminophen 5 mg-325 mg tablet 1 - 2 tab PO Q6H PRN PRN Pain 11/23/21 [History Last Taken Unknown] Allergy/AdvReac Type Severity Reaction Status Date / Time No Known Allergies Allergy Verified 08/24/18 09:02 Surgical History History of endometrial ablation Total knee replacement status Social History Smoking Status: Never smoker ROS ROS ED Constitutional Constitutional ED: Denies chills or fever(s) Eyes Eyes: Denies blurry vision or change in vision ENT ENT ED: Denies rhinorrhea or sore throat Cardiovascular Cardiovascular: Reports chest pain; Denies palpitations Respiratory/Chest Respiratory/Chest: Denies cough or dyspnea Gastrointestinal Gastrointestinal: Denies abdominal pain, nausea or vomiting Genitourinary Genitourinary ED: Denies dysuria or hematuria Musculoskeletal Musculoskeletal: Denies back pain or neck pain Integumentary Denies abscess or rash Neurologic Neurologic: Denies headache(s) or weakness Allergic/Immunologic Allergic/Immunologic ED: Denies mouth swelling or urticaria EXAM Physical Exam Const Vital Signs: 11/23/21 06:50 11/23/21 06:56 11/23/21 07:18 Temperature 97.7 F L Temperature Source Oral Pulse Rate 117 H Respiratory Rate 20 H Respiratory Effort Normal Non-Labored Blood Pressure 153/96 H Blood Pressure Mean 115 Pulse Ox 97 Oxygen Delivery Method Room Air Room Air 11/23/21 09:28 11/23/21 11:26 Temperature Temperature Source Pulse Rate 79 77 Respiratory Rate 18 18 Respiratory Effort Blood Pressure 140/76 H 144/83 H Blood Pressure Mean 97 103 Pulse Ox 94 95 Oxygen Delivery Method Room Air Room Air Positive well nourished, well developed and obese General Appearance ED: well developed and NAD Nutritional Appearance: obese HEENT normocephalic and atraumatic Eyes PERRL and EOMs intact bilaterally Neck supple and no JVD Chest Wall palpation of chest normal Resp normal respiratory effort and clear to auscultation bilaterally Effort and Inspection: Negative for respiratory distress Cardio regular rhythm and no murmurs Rate: tachycardic GI normal to inspection, nondistended, normoactive bowel sounds, soft to palpation, non-tender and non-distended Extremity normal to inspection General Extremety ED: Negative for edema or tenderness General Extremity: Negative for edema Neuro oriented x3, CN's II-XII intact bilaterally and no sensory deficits noted Sensorium / Orientation: awake and alert Motor Exam: strength 5/5 throughout Psych mental status grossly normal Heart Score History: Slightly/Non-Suspicious ECG: Normal Age: >45 - <65 years Risk Factors: No Risk Factors Score: 1 MDM MDM MDM Narrative Medical decision making narrative: Patient took aspirin prior to arrival. EKG was obtained. On my interpretation, it showed a normal sinus rhythm with a rate of 102. WV interval, QRS interval, and QTc intervals were all normal. Dameron was normal. There are no acute ST or T wave changes. CBC was within normal limits. Basic metabolic profile was normal. High-sensitivity troponin was normal. 2-hour repeat high-sensitivity troponin was normal. CTA of the chest was obtained. There are bilateral pulmonary emboli noted. This was interpreted by the radiologist and reviewed by myself. Patient was given a dose of Eliquis here. Patient was given a prescription for Eliquis. Patient remains hemodynamically stable. Patient was instructed to follow-up with her primary care physician in 5 to 7 days. Patient was also instructed to follow-up with orthopedic surgeon as scheduled. Patient understood and was agreeable with the plan. All questions were answered. Lab Data Attestation: I reviewed the patient's lab results. Labs: Laboratory Results - last 24 hr 11/23/21 11/23/21 11/23/21 06:55 06:55 09:45 WBC 8.4 RBC 4.20 Hgb 12.6 Hct 38.6 MCV 91.9 MCH 30.0 MCHC 32.6 RDW Std Deviation 43.4 RDW Coeff of Tmomy 13.0 Plt Count 306 MPV 11.2 Immature Gran % (Auto) 0.100 Neut % (Auto) 70.3 H Lymph % (Auto) 20.3 [place] % (Auto) 6.8 Eos % (Auto) 2.1 Baso % (Auto) 0.4 Absolute Neuts (auto) 5.9 Absolute Lymphs (auto) 1.70 Nucleated RBC % 0 Sodium 140 Potassium 3.9 Chloride 107 Carbon Dioxide 28.0 Anion Gap 5 BUN 11 Creatinine 0.73 Estim Creat Clear Calc 76.71 Est GFR (MDRD) Af Amer 103 Est GFR (MDRD) Non-Af 85 BUN/Creatinine Ratio 15.0 Glucose 102 Calcium 9.7 Troponin I High Sens 4 4 Radiography Diagnostic Testing: Clinical Impression(s) from Imaging Studies Chest CTA 11/23/21 07:18 IMPRESSION: Abnormal CTA chest examination, with bilateral pulmonary embolism. Mild interstitial edema or fibrosis. Electronically Signed: Juan Crawford MD at 11:58 EDT , EKG Initial EKG: Attestation: I personally reviewed and interpreted this EKG as follows: Interpretation: Sinus Rhythm (102) and No Acute Injury Pattern Prior EKG tracings: not available for review Prior: No Prior Discharge Plan Triage Chief Complaint: Chest Pain ED Provider: Colt Still Dx/Rx/DC Orders Clinical Impression: Pulmonary embolism, Chest pain made worse by breathing Instructions: Pulmonary Embolism Prescriptions: New Eliquis 5 mg tablet 5 mg PO BID Qty: 74 0RF Rx Instructions: 10 mg twice a day for the first week. Then 5 mg twice a day. No Action oxycodone-acetaminophen 5-325 mg tablet 1 - 2 tab PO Q6H PRN PRN (Reason: Pain) Label Comments: TAKE 1 TO 2 TABLETS BY MOUTH EVERY 6 HOURS NEEDED FOR PAIN aspirin 81 mg Tablet 81 mg PO BID Primary Care Provider: Davi Eugene Referrals: Davi Eugene MD [Primary Care Provider] - 5-7 Days Disposition Disposition: Home, Self Care
--- NOTE | 2021-11-23 07:18 | EKG12_ITS ---
Test Reason : Blood Pressure : / mmHG Vent. Rate : 102 BPM Atrial Rate : 102 BPM P-R Int : 162 ms QRS Dur : 086 ms QT Int : 338 ms P-R-T Axes : 070 047 056 degrees QTc Int : 440 ms Sinus tachycardia with Premature atrial complexes Otherwise normal ECG Confirmed by JAVID ROBBINS, PURVI ([id number]), technical writer and editor BALJIT DOMINGUEZ ([id number]) on 11/26/2021 8:52:22 AM Referred By: Confirmed By:PURVI HUA MD
--- NOTE | 2021-11-23 07:18 | CT_ITS ---
We are attempting to reach an attending provider to discuss findings. An addendum with communication details will be sent when the communication is complete. STUDY: CTA CHEST REASON FOR EXAM: Female, 61 years old. Chest pain RADIATION DOSAGE (If Supplied By Facility): CTDIvol = ( 17.12 ) mGy, DLP = ( 429.73 ) mGycm TECHNIQUE: The examination was performed with the intravenous administration of IV 100mL Isovue-370. Post-processing of the angiographic images was performed, with multiplanar reformation and 3D reconstruction. Individualized dose optimization techniques were used for this CT. COMPARISON: None. FINDINGS: Normal enhancement of the main pulmonary artery and right and left pulmonary arteries. There are bilateral filling defects involving central and peripheral pulmonary arteries consistent with pulmonary embolism. Normal thoracic aorta and visualized great vessels. There is no demonstrated aortic dissection. There are calcifications of the coronary arteries. The right ventricle and left ventricle ratio is 0.8. Normal mediastinum. Normal hilar regions. Normal visualized trachea and bronchi. The lungs are well expanded. There are mild lower lung interstitial increased opacities. Normal pleura. Normal chest wall structures. There are degenerative changes of thoracic spine. Normal visualized upper abdomen. CT/CTA Chest W/WO Contrast IMPRESSION: Abnormal CTA chest examination, with bilateral pulmonary embolism. Mild interstitial edema or fibrosis. Electronically Signed: Juan Crawford MD at 11:58 EDT ,
[2021-11-23] MEDS: Aspirin 81 MG TAB.CHEW 243 MG PO (07:31)
[2021-11-23] MEDS: 0.9% Normal Saline 1,000 ML 1000 ML IV (07:31)
[2021-11-23 07:43] LABS: Absolute Neutrophil Count 5.9 X10^3/uL (2.0-7.7); Basophil# 0.03 X10^3/uL; Basophil% 0.4 % (0-1); Eosinophil# 0.18 X10^3/uL; Eosinophils% 2.1 % (0-5); Hematocrit 38.6 % (37-47); Hemoglobin 12.6 g/dL (12.0-15.0); Lymphocyte % 20.3 % (19-41); Mean Corp Hgb Conc 32.6 g/dL (32-36); Mean Corpuscular Volume 91.9 fL (81-99); Mean Platelet Vol. 11.2 fl (6.2-12.0); Monocyte# 0.57 X10^3/uL; Monocyte% 6.8 % (0-10); NRBC Flagged by Analyzer 0 % (0-5); Neutrophil # 5.89 X10^3/uL (2.7-7.7); Neutrophil % 70.3 % (47-70); Platelet Count 306 K/mm3 (150-450); RBC Distribution Width SD 43.4 fl (35.1-43.9); White Blood Count 8.4 K/mm3 (4.4-11.0)
[2021-11-23 08:02] LABS: Anion Gap 5 (5-15); BUN 11 mg/dL (7-18); Calcium,Total 9.7 mg/dL (8.5-10.1); Chloride 107 mmol/L (98-107); Creatinine, Serum 0.73 mg/dL (0.55-1.02); EST Glomerular Filtration Rate 85 mL/min (>60); Est Glom Filt Rate - Afr Amer 103 mL/min (>60); Estimated Creatinine Clearance 76.71 ml/min; Glucose 102 mg/dL (74-106); Potassium 3.9 mmol/L (3.5-5.1); Sodium Level 140 mmol/L (136-145); Troponin-I HS (w/2H Reflex) 4 pg/mL (3.0-54.0)
[2021-11-23 09:28] VITALS: BP 140/76; PULSE 79; RESP 18; O2SAT 94
[2021-11-23 09:38] LABS: Reflex Troponin-HS? (from REC) Y
[2021-11-23 10:10] LABS: Troponin-I HS 4 pg/mL (3.0-54.0)
[2021-11-23 11:26] VITALS: BP 144/83; PULSE 77; RESP 18; O2SAT 95
[2021-11-23] MEDS: APIXABAN 5 MG TABLET 10 MG PO (11:29)
[2021-11-23 12:36] VITALS: BP 141/82; PULSE 88; RESP 21; O2SAT 96
== END 2021-11-23 12:37 | disposition home or self-care (01) ==
PROVIDERS: Emergency Provider Emergency Medicine; PCP Family Medicine; Visit Provider Emergency Medicine
DX: I26.99 Other pulmonary embolism without acute cor pulmonale (principal); E66.9 Obesity, unspecified; Z79.82 Long term (current) use of aspirin; Z79.899 Other long term (current) drug therapy; Z86.711 Personal history of pulmonary embolism
CPT/HCPCS: 71275; 80048; 84484; 85025; 93005; 96360; 96361; 99285; Q9967

== ENCOUNTER → 2021-12-15 | Outpatient (CLI) | payer OTHER, SELFPAY ==
--- NOTE | 2021-12-15 12:45 | RAD_ITS ---
STUDY: X-RAY CHEST REASON FOR EXAM: Female, 61 years old. chest pain TECHNIQUE: PA and lateral views of the chest. COMPARISON: None. FINDINGS: Small right effusion with blunting of the right costophrenic angle. Otherwise, the right and left lung are clear. Normal size heart. Normal mediastinum and fernando. Normal visualized pulmonary arteries. Normal visualized aortic arch and descending thoracic aorta. Normal visualized thoracic spine. Normal visualized ribs, clavicles, and shoulders. There is no demonstrated abnormality of the visualized soft tissue structures of the upper abdomen. RAD/Chest PA and Lateral IMPRESSION: Small right effusion Electronically Signed: Hugo Vines DO at 1:23 EDT ,
== END | disposition home or self-care (01) ==
LOC: MTRAD 12:44
PROVIDERS: PCP Family Medicine; Referring Provider Family Medicine; Visit Provider Family Medicine
DX: R07.9 Chest pain, unspecified (principal)
CPT/HCPCS: 71046

== ENCOUNTER 2022-01-14 13:00 | Outpatient (RCR) | payer OTHER, SELFPAY ==
--- NOTE | 2021-11-03 08:36 | HP.PTEVAL_ITS ---
Patient's Visit Information RACHAEL ROMERO is a 61 year old F referred to Physical Therapy by Dr. Rigo Hoover MD with a diagnosis of L knee OA s/p TKA 10/27/21. Date of Evaluation: 11/03/21 Physical Therapist: Colt Falcon, DPT, OCS, CSCS - Visit Plan Frequency: 2-3x /Week Duration: 3 Weeks Plan: 3x/week for 4-6 weeks for. 1. ROM to L knee A/PROM. 2. strength mat to funcitonal to gym of L LE to tolerance. 3. gait training and education managemntof condition, scar massage. ice as needed. - Subjective Had L TKA 6 days ago on 10/27/21 at [facility]. Home health did not show up last week and here she is. this is her first venture out of the house and is running behind. Using walker to get around. with her. Had injury to L knee 30 years ago and then torn mensicus. Had tratments with cortisone injections which were not helping. R knee is healthy. Pain over the weekend to 07/13 when pain meds wore off. Is on oxecodeine every 6 hours. 2/10 when controlled. Sleeping on back and OK on pain meds. Showered this am in walk in shower. Bathrrom self and dressing self slowly except for shoes. HEP: AP, ankle cirlces, HS, QS, Doing them alot. 3x/day minimum. Elevating and icing with polar care. 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 Exercise includes walking alot but has not been able to. Hobbies include gardening and dogs. Stairs 3 to get in and with railing. did OK albeit slow this am. - Objective L 20 inch and 26 inch 6 inch sp. 70 flexion and -11 ext. knee flexion 18# and ext 7#. No SLr with mod A today on L. TUG 65 seconds. Trasnfer to table needs assist wtih L LE. Chair trasnfer with UE I. Walks slowly with walker without bending L knee mod I with walker. R LE WFL with ROM and strength as is UE. - Balance/Special Test Scores TUG Test Time Seconds: 65 WOMAC Total Score: 75 WOMAC Percentatge: 21.8800 - Goals Goal 1:: ST; AROM L knee 0-110 to aid in mobility Goal Time Frame: 2-4 Weeks Goal 2:: ST: pain 0-2/10 at all times Goal Time Frame: 2-4 Weeks Goal 3:: LT walk without AD I in community Goal Time Frame: 4-6 Weeks Goal 4:: steps reciprocal with one rail I Goal Time Frame: 4-6 Weeks Goal 5:: Pt feel back to 90% activities Goal Time Frame: 4-6 Weeks - Rehabilitation Potential Physical Therapy Diagnosis: L knee pain and stiffness after TKA limiting mobility Rehabilitation Potential: Good - Anticipated Interventions Patient/Client Instruction: Educate patient on: Condition, Plan of Care For the Purpose of:: To decrease pain, To increase ROM, To improve nutrient delivery to tissue, To improve muscle performance and motor function, To increase tolerance to activity/condition/position, To improve ability of physical actions for home/community/work/leisure Therapeutic Exercise to Include: Strength training, Agility training, Body mechanics, Postural training, Flexibilty training, Gait and locomotor training, Neuromotor development, Passive ROM, Active ROM For the Purpose of:: To decrease pain, To decrease swelling/inflammation, To increase ROM, To improve nutrient delivery to tissue, To improve muscle performance and motor function, To increase tolerance to activity/condition/position, To improve performance and independence with ADL's, To improve gait and locomotor functions Manual Therapy Techniques to Include: Scar massage, Soft tissue mobilization For the Purpose of:: To increase ROM Cryotherapy (ice pack, ice massage): Yes For the Purpose of:: To decrease swelling/inflammation Thank you for the opportunity to evaluate your patient. For Medicare and Medicare HMO plans, please review the plan of care and approve it. It will need to be FAXED BACK to us at [phone] for Medicare purposes. For Medicare only, by signing this I certify the plan of care. Please let me know if there are questions or concerns regarding this plan of care. Physician Signature: Date:
--- NOTE | 2021-12-17 13:55 | HP.PTREVAL_ITS ---
Dr. Rigo Hoover MD, It has been my pleasure to treat RACHAEL ROMERO over the last 18 visits for L knee OA s/p TKA 10/27/21. Please see the progress note below for an update on the physical therapy plan of care! Subjective: Pt states she is discouraged. Saw and talking possible manipulation. Wants her to have 6 more weeks of therapy (but insurance currently states 20 max, and we are on 18 today). States feeling better after working out with the weights last session. From previous note, same day: Saw dr. Strong and may have manipulation. Pain level is 1/10 at rest. 0/10 walking in. Pain with working out(bending knee) or steps at home. Pain is at knee cap and 0-1 normally and worse when bending 9/10. Sleep is OK. Has blood clots in lungs g iving her pain in t/s area. On pain meds for that. Not walking dog at home, will walk with . May be able to walk dogs. Wants to drive car. Wants to get back to work at [employer] Objective/Function: Pt has admitted to not doing the prone quad strap stretch at home. Talked about compression again for better edema control. Much education about manipulation procedure and what to expect afterwards. Patella still not moving well. Visually the knee is flexing to 90-100 degrees AAROM prone with strap. -1 to 98 PROM L knee, 96 AROM. Pain at end range. Walking is I without Ad safely, tends to be antalgic at times but not often. steps are reciprocal with plenty of strength but pain end range L knee flexion descending using L , ascending is not bad pain. Overall improving slowly in all areas except flexion ROm which is her main limiting factor. Doctor wants manip which is not a bad idea but patient is limited on PT visits(2 more remaining fort the year) Plan Plan: 1 more session to ensure I gym program which patient plans on continuing. Also -lease be aggressive with L knee flexion ROm, then f/u two weeks later unless has manipulation. Pt will call to get back on schedule if this happens prior to two weeks and will require 3-5x/week for a couple weeks after manip. Balance/Gait/Functional tests - Balance/Special Test Scores Lower Extremity Functional Score: 48 TUG Test Time Seconds: 65 Tug Test: >30sec.=impaired mobility WOMAC Total Score: 25 WOMAC Percentage: 73.9600 Goals Goal 1:: ST; AROM L knee 0-110 to aid in mobility Goal Time Frame: 2-4 Weeks Goal Progress: Not Progressing Goal 2:: ST: pain 0-2/10 at all times Goal Time Frame: 2-4 Weeks Goal Progress: Progressing Goal 3:: LT walk without AD I in community Goal Time Frame: 4-6 Weeks Goal Progress: Goal Met Goal 4:: steps reciprocal with one rail I Goal Time Frame: 4-6 Weeks Goal Progress: Goal Met Goal 5:: Pt feel back to 90% activities Goal Time Frame: 4-6 Weeks Goal Progress: Progressing Anticipated Interventions Patient/Client Instruction: Educate patient on: Condition, Plan of Care For the Purpose of:: To decrease pain, To increase ROM, To improve nutrient delivery to tissue, To improve muscle performance and motor function, To increase tolerance to activity/condition/position, To improve ability of physical actions for home/community/work/leisure Therapeutic Exercise to Include: Strength training, Agility training, Body mechanics, Postural training, Flexibilty training, Gait and locomotor training, Neuromotor development, Passive ROM, Active ROM For the Purpose of:: To decrease pain, To decrease swelling/inflammation, To increase ROM, To improve nutrient delivery to tissue, To improve muscle performance and motor function, To increase tolerance to activity/condition/position, To improve performance and independence with ADL's, To improve gait and locomotor functions Manual Therapy Techniques to Include: Scar massage, Soft tissue mobilization For the Purpose of:: To increase ROM Cryotherapy (ice pack, ice massage): Yes For the Purpose of:: To decrease swelling/inflammation Please do not hesitate to contact me at [phone] by phone or Fax: if you have questions or concerns regarding this new plan of care! Sincerely, Colt Falcon, DPT, OCS, CSCS
--- NOTE | 2022-01-14 14:00 | HP.PTDCSUM ---
It has been my pleasure to treat RACHAEL ROMERO referred by Dr. Rigo Hoover MD, with the diagnosis of L knee OA s/p TKA 10/27/21 for a total of 30 visit(s). Discharge Date: 01/14/22 Please see the following information for a summary of their discharge status. Subjective: I am ready to be on my own. Will continue in gym on her own. Pain level is OK, stiff in am. Not much real pain. Back to work next wednesday. Will move around more. Sleep is OK with melatonin. has been walking dogs and walking with . R knee Pain Intensity (Out of 10): 0 % Improvement: 90 Objective/Function: 0-111. 12 TUG. 62# quad and 43 HS. girth 19.5inch patella and 24 6 inch sp. Walks well without antalgia. Steps reciprocal up without rail and descending with one rail reciprocally. Goal 1:: ST; AROM L knee 0-110 to aid in mobility Goal Progress: Goal Met Goal 2:: ST: pain 0-2/10 at all times Goal Progress: Goal Met Goal 3:: LT walk without AD I in community Goal Progress: Goal Met Goal 4:: steps reciprocal with one rail I Goal Progress: Goal Met Goal 5:: Pt feel back to 90% activities Goal Progress: Goal Met Plan: d/c to HEP/gym Discharge Comments: doing well adn will continue ex on own. If there are questions or concerns regarding this patient's physical therapy, please feel free to call me at [phone]. Thank you for the referral of this patient. Sincerely, Colt Falcon, DPT, OCS, CSCS Balance/Gait/Functional tests - Balance/Special Test Scores Lower Extremity Functional Score: 48 TUG Test Time Seconds: 65 Tug Test: >30sec.=impaired mobility WOMAC Total Score: 16 WOMAC Percentage: 83.3400
== END 2022-01-14 19:00 | disposition home or self-care (01) ==
LOC: PT 13:00
PROVIDERS: PCP Family Medicine; Referring Provider Orthopaedic Surgery; Visit Provider Orthopaedic Surgery
DX: M17.12 Unilateral primary osteoarthritis, left knee (principal)
CPT/HCPCS: 97110; 97162; 97164; 97530

== ENCOUNTER → 2022-02-11 | Outpatient (CLI) | payer SELFPAY ==
--- NOTE | 2022-02-11 11:18 | MRI_ITS ---
EXAM: MR RIGHT LOWER EXTREMITY WITHOUT INTRAVENOUS CONTRAST, TIBIA AND FIBULA CLINICAL INDICATION: PAIN OF RIGHT LOWER EXTREMITY; ATTENTION TIB-FIB TECHNIQUE: Multiplanar and multisequence MR images of the right tibia and fibula without intravenous contrast. This report was created using [employer] report generation technology. COMPARISON: October 14 and September 12, 2222 FINDINGS: See Impression. MRI/Lower Ext/No Jt/w/o IMPRESSION: Subcutaneous fluid along the anterior aspect of a long segment of the tibia. This may represent stress change although there are no recent stress or traumatic fractures with no bone marrow signal alterations seen throughout the exam. Muscles and tendons are normal. No masses or any organized fluid collections. Electronically Signed: Thiago Garces MD at 3:54 EST ,
== END | disposition home or self-care (01) ==
PROVIDERS: PCP Family Medicine; Referring Provider Family Medicine; Visit Provider Family Medicine
DX: M79.604 Pain in right leg (principal)
CPT/HCPCS: 73718

== ENCOUNTER → 2022-12-02 | Outpatient (CLI) | payer OTHER, SELFPAY ==
--- NOTE | 2022-12-02 14:51 | BI_ITS ---
MAMMOGRAPHY - BILATERAL SCREENING REASON FOR EXAM: Female, 62 years old. Routine annual screening examination. PERTINENT HISTORY: Non-contributory. Prior right stereotactic breast biopsy. TECHNIQUE: Digital bilateral breast facundo (3D mammographic acquisition) in the CC and MLO projections. 2-D mediolateral oblique (MLO) and craniocaudad (CC) views of both breasts were obtained. CAD: Full Field Digital Mammography with Computer Added Detection was performed. COMPARISON: Comparison is made with prior study dated April 30, 2018 and March 15, 2017. FINDINGS: Breast Composition: The breasts are heterogeneously dense, which may obscure small masses. There are no dominant masses or suspicious calcifications. A tissue clip marker is seen in the upper lateral portion of the right breast. No other significant abnormalities are identified. There has been no significant change since the prior study. BI/SCRN MAMM (CAD)W/FACUNDO BILAT IMPRESSION: Stable bilateral screening mammogram. Yearly follow-up mammogram recommended. (A) ASSESSMENT CATEGORY: BIRADS Category 2: Benign. A letter regarding these results will be sent to the patient by the facility within 30 days. Approximately 10% of breast cancers are not detected by mammography. A normal mammogram should not delay biopsy of a clinically suspicious abnormality. [id number] Electronically Signed: Edson Castorena MD at 8:07 EDT ,
[2022-12-02 17:47] LABS: Hematocrit 38.5 % (37-47); Hemoglobin 12.5 g/dL (12.0-15.0); Mean Corp Hgb Conc 32.5 g/dL (32-36); Mean Corpuscular Hgb 30.8 pg (27.0-32.0); Mean Corpuscular Volume 94.8 fL (81-99); Mean Platelet Vol. 11.8 fl (6.2-12.0); Platelet Count 241 K/mm3 (150-450); RBC Distribution Width CV 12.7 % (11.6-14.6); RBC Distribution Width SD 44.3 fl (35.1-43.9); Red Blood Count 4.06 M/mm3 (4.2-5.4); White Blood Count 7.8 K/mm3 (4.4-11.0)
[2022-12-02 18:41] LABS: AST(SGOT) 21 U/L (15-37); Alanine Aminotransfer ALT/SGPT 43 U/L (13-56); Albumin, Serum 3.5 g/dL (3.2-5.0); Alkaline Phosphatase 85 U/L (45-117); Anion Gap 5 (5-15); BUN 14 mg/dL (7-18); BUN/Creat Ratio 22.4 RATIO (10-20); Chloride 110 mmol/L (98-107); Creatinine, Serum 0.62 mg/dL (0.55-1.02); EST Glomerular Filtration Rate 102 mL/min (>60); Est Glom Filt Rate - Afr Amer 124 mL/min (>60); Globulin 3.5 g/dL (2.2-4.2); Glucose 101 mg/dL (74-106); Sodium Level 139 mmol/L (136-145); Thyroid Stim Hormone (TSH) 1.06 uIU/mL (0.358-3.74)
== END | disposition home or self-care (01) ==
PROVIDERS: PCP Family Medicine; Referring Provider Family Medicine; Visit Provider Family Medicine
DX: Z12.31 Encounter for screening mammogram for malignant neoplasm of breast (principal); R60.0 Localized edema
CPT/HCPCS: 36415; 77063; 77067; 80053; 84443; 85027

== ENCOUNTER → 2022-12-11 | Outpatient (CLI) | payer OTHER, SELFPAY ==
--- NOTE | 2022-12-11 13:45 | VDLE_ITS ---
VL/Venous Duplex US - Mark Extrem Interpretation Summary Deep veins of the bilateral lower extremities are patent and compressible segme ntally. There is no evidence of bilateral lower extremity deep vein thrombosis. The bilateral great saphenous veins appear patent and compressible segmentally. Ordering Physician: Mk Eugene Referring Physician: Mk Eugene Performed By: Adina Bryson, UZAIR, RVT
== END | disposition home or self-care (01) ==
LOC: CVS 13:40
PROVIDERS: PCP Family Medicine; Referring Provider Family Medicine; Visit Provider Family Medicine
DX: R60.0 Localized edema (principal)
CPT/HCPCS: 93970

== ENCOUNTER 2023-01-27 15:49 | Emergency (ER) | payer OTHER, SELFPAY ==
[2023-01-27 15:51] VITALS: BP 154/127; PULSE 94; RESP 18; TEMP 35.5; O2SAT 100; BMI 34.2
--- NOTE | 2023-01-27 16:14 | RAD_ITS ---
INDICATION: inability to bear weight EXAMINATION/TECHNIQUE: X-RAY - RIGHT XR Knee Complete 4 Views COMPARISON: FINDINGS: SOFT TISSUES: No soft tissue swelling or gas. No radiopaque foreign body. Mild suprapatellar effusion. BONES/JOINTS: No acute fracture or subluxation.. Spurring at the infrapatellar tendon insertion. Preservation of the joint space.. No sclerotic or destructive changes observed. RAD/Knee 4 or More Views IMPRESSION: Mild suprapatellar effusion. Electronically Signed: Donald Baez DO at 16:49 EDT Reading Location ID and State: [facility] / [place] Tel [phone], Service support ,
--- NOTE | 2023-01-27 18:43 | EDS_ITS ---
HPI History of Present Illness Chief Complaint: Lower Extremity Injury Detail of Chief Complaint: Right knee pain, atraumatic Informant: patient Occured/Mechanism Comment: States her right knee pain has intensified. She is now unable to bear weight. She presented with crutches. Onset/Context/Timing Onset: Days Context: Gradual Onset Timing: Continuous Quality of Pain: Dull and Aching Location: Right knee Current Severity: Mild Maximum Severity: Severe Worsened by: Weightbearing and movement Relieved by: Nothing Associated Symptoms Associated Symptoms: Positive for Loss of Funtion; Negative for Parasthesia or Weakness Narrative Narrative: Is a 62-year-old woman status post total knee arthroplasty on the left by Dr. Karthik Hoover at the [facility]. She had postop complication with bilateral pulm embolus. She is present Eliquis. She presents because of right knee pain. She denies history of gout or pseudogout. She is on no thiazide diuretic. She denies fever, chills night sweats. She denies paresthesia, anesthesia motor weakness Prior similar symptoms: Yes Recent Illness/Hospitalization: No PFSH PFSH Medical History Pulmonary emboli Home Medications apixaban 5 mg tablet (Eliquis) 5 mg PO BID #74 tabs 11/23/21 [Rx Last Taken Unknown] aspirin 81 mg tablet 81 mg PO BID 11/23/21 [History Last Taken Unknown] oxycodone-acetaminophen 5 mg-325 mg tablet 1 - 2 tab PO Q6H PRN PRN Pain 11/23/21 [History Last Taken Unknown] hydrocodone-acetaminophen 5-325mg 5mg-325mg 1 tab PO Q6H PRN PRN Pain 3 days #10 TABLETS 01/27/23 [Rx Last Taken Unknown] Allergy/AdvReac Type Severity Reaction Status Date / Time No Known Allergies Allergy Verified 08/24/18 09:02 Surgical History History of endometrial ablation Total knee replacement status Social History Smoking Status: Never smoker ROS ROS ED Constitutional Constitutional ED: Denies chills, fever(s) or subjective Musculoskeletal Musculoskeletal: Reports other Details: Knee pain, right ; Denies arthralgias or myalgias Integumentary Denies rash Neurologic Neurologic: Denies headache(s), paresthesias or weakness Allergic/Immunologic Allergic/Immunologic ED: Denies mouth swelling or tongue swelling EXAM Physical Exam Const Vital Signs: 01/27/23 15:51 Temperature 96 F L Temperature Source Temporal Pulse Rate 94 Respiratory Rate 18 Blood Pressure 154/127 H Blood Pressure Mean 136 Pulse Ox 100 Oxygen Delivery Method Room Air Positive well nourished, well developed and obese General Appearance ED: well developed and NAD Nutritional Appearance: obese HEENT Reports moist mucous membranes normocephalic Eyes PERRL Eyes Narrative: Muscle intact. Skin icteric. Resp normal respiratory effort Cardio regular rate and regular rhythm Extremity normal to inspection Extremity Narrative: No obvious swelling of the right knee compared to the left. The patella is not ballotable. There is no effusion. She has tenderness in the popliteal fossa. There is no palpable pulsatile mass. There is no palpable cords. She has no pain along the distribution deep venous system. Varus valgus stress testing causes pain but there is no laxity compared to the asymptomatic side. Mamie's test was negative. Modified Raymond's test is negative. Stable to extend to 180 degrees and flex to 90 degrees. General Extremety ED: Yes weight-bearing difficulty General Extremity: weight-bearing difficulty Neuro oriented x3, CN's II-XII intact bilaterally, moves all extremities and no sensory deficits noted Sensorium / Orientation: alert Motor Exam: strength 5/5 throughout Psych mental status grossly normal Skin no wounds Lesions: no lesions Rashes: no rashes MDM MDM MDM Narrative Medical decision making narrative: Obtained per nurse protocol. X-ray was reviewed prior to patient being put in the room. Patient has mild suprapatellar effusion. Also arthritic changes calcification involving the infrapatellar tendon. Radiography Diagnostic Testing: Clinical Impression(s) from Imaging Studies Knee X-Ray 01/27/23 16:14 IMPRESSION: Mild suprapatellar effusion. Electronically Signed: Donald Baez DO at 16:49 EDT , Discharge Plan Triage Chief Complaint: Lower Extremity Injury ED Provider: Gareth Polk Dx/Rx/DC Orders Clinical Impression: Effusion of right knee joint, Patellar tendinitis of right knee Instructions: ED Knee Effusion, ED Tendonitis Prescriptions: New hydrocodone-acetaminophen [hydrocodone-acetaminophen] 5-325 mg tablet 1 tab PO Q6H PRN PRN (Reason: Pain) 3 Days Qty: 10 0RF No Action oxycodone-acetaminophen 5-325 mg tablet 1 - 2 tab PO Q6H PRN PRN (Reason: Pain) Patient Comments: TAKE 1 TO 2 TABLETS BY MOUTH EVERY 6 HOURS NEEDED FOR PAIN aspirin 81 mg Tablet 81 mg PO BID Eliquis 5 mg tablet 5 mg PO BID Qty: 74 0RF Rx Instructions: 10 mg twice a day for the first week. Then 5 mg twice a day. Primary Care Provider: Davi Eugene Referrals: Davi Eugene MD [Primary Care Provider] - Rigo Hoover MD [Non-Staff] - 5-7 Days Disposition Disposition: Home, Self Care
== END 2023-01-27 20:06 | disposition home or self-care (01) ==
LOC: ED 19:21
PROVIDERS: Emergency Provider Emergency Medicine; PCP Family Medicine; Visit Provider Emergency Medicine
DX: M76.51 Patellar tendinitis, right knee (principal); M25.461 Effusion, right knee; Z79.01 Long term (current) use of anticoagulants; Z79.82 Long term (current) use of aspirin; Z79.899 Other long term (current) drug therapy; Z86.711 Personal history of pulmonary embolism; Z96.652 Presence of left artificial knee joint
CPT/HCPCS: 73564; 99282; A4216

== ENCOUNTER → 2023-02-22 | Outpatient (CLI) | payer OTHER, SELFPAY ==
--- NOTE | 2023-02-22 08:00 | MRI_ITS ---
STUDY: MRI RIGHT KNEE REASON FOR EXAM: Female, 62 years old. Pain, effusion. TECHNIQUE: Standardized fat and water weighted pulse sequences were obtained in all 3 orthogonal planes. COMPARISON: Right knee radiographs dated 01/27/2023. FINDINGS: There is a partial radial tear of the posterior horn of the medial meniscus (sagittal PD series 6 images 21-23). There is degenerative arthrosis of the medial femorotibial compartment with joint space narrowing, marginal osteophyte formation, moderate to high-grade chondromalacia, and subchondral marrow edema on both sides of the joint. There is a mild grade I MCL sprain with periligamentous edema (coronal T2 series images 16-18). Normal distal semimembranosus, gracilis and semitendinosus tendons. Normal lateral meniscus. Normal hyaline cartilage of the lateral femorotibial compartment. There is mild osteoarthritic spur formation of the lateral knee compartment. Normal proximal tibiofibular articulation. Normal lateral collateral (fibular) ligament. Normal popliteus tendon. Normal biceps femoris tendon. Normal anterior cruciate ligament (ACL). Normal posterior cruciate ligament (PCL). There is low-grade patellofemoral chondromalacia. Congruent patellofemoral articulation. Normal medial and lateral patellar retinaculum. Normal quadriceps tendon. Normal patellar tendon. Normal Hoffa''s fat pad. There is a moderate volume joint effusion. There is no popliteal cyst. There is mild subcutaneous soft tissue edema along the anterior aspect of the knee. There is no acute fracture. MRI/Lower Ext Joint Only (Routine) IMPRESSION: Partial radial tear of the posterior horn of the medial meniscus. 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 Mild grade I MCL sprain. Moderate volume joint effusion. Mild subcutaneous soft tissue edema along the anterior aspect of the knee. Electronically Signed: Alec Cohen MD at 11:00 EST ,
== END | disposition home or self-care (01) ==
PROVIDERS: PCP Family Medicine; Referring Provider Family Medicine; Visit Provider Family Medicine
DX: M25.461 Effusion, right knee (principal)
CPT/HCPCS: 73721

== ENCOUNTER 2023-03-26 09:00 | Outpatient (RCR) | payer OTHER, SELFPAY ==
--- NOTE | 2023-03-09 15:56 | HP.PTEVAL_ITS ---
Patient's Visit Information Visit Information Visit Information: RACHAEL ROMERO is a 62 year old F referred to Physical Therapy by Dr. Davi Eugene MD with a diagnosis of R knee pain. Date of Evaluation: 03/09/23 Physical Therapist: Colt Falcon, DPT, OCS, CSCS Visit Plan Frequency: 3x /Week Duration: 4-6 Weeks Plan: 3x/week for 4 weeks for 1. Ensure activity modification to avoid pain 2. gym based LE /postural and core strength to I without increased pain 3. Knee ROM flexion and extension and progression of function Subjective Subjective: Stopped working out this summer as . L knee is tight but functional. R knee started hurting. L knee post op visit one year went well. here for the right knee. It started hurting in January. Had staff meetings at work and felt like it was painful and might give out. Insidious onset. ER in November and x ray was fine. Dr. Eugene ordered MRI and she was on crutches. MRI 02/22, showed medial mensical tear. Got cortisone shot a few weeks ago and it helped 85%. Pain prior was 6/10 and limping. Since pain is 3- 4/10 . Pain is medial and lateral anterior at joint line. Steps are hard on the right side as it feels weak but it has not given out on her. Sleep is Ok with pillow b/w knees on L side. It used to waker her up. 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 Hobbies include walking dog adn does not go as far or as fast as she used to. First couple step in am are ouchy. No other treatments other than PT. Has a wrap on it when up and about, had the injection adn sometimes takes tylenol. Pain R knee: Pain Intensity (Out of 10): 0 Pain Intensity Range: 0 and 6 Objective Objective: Slight R antalgia upons standing but dissipates quickly. Steps reciprocally with slight R knee pain today, can manage body weight well. Trasnfers are I quad is mod tight B, HS flexible, ITB flexible. AROM R knee 0-115 limited flexion by pain, extension not painful L knee -3-105(tka a year ago) - bounce home, + pivot test. hips and ankles aROM WFL. strength hips 4- B, knee flexion 4- B, quad 4 B without pain. ankles 4+/5 B Sensation LE WNL to gross light touch. Balance/Special Test Scores Lower Extremity Functional Score: 54 Goals Goal 1:: Get up in am without pain x 2 weeks Goal Time Frame: 4-6 Weeks Goal 2:: Full ROM without pain or hesitation to 125 flexion. Goal Time Frame: 4-6 Weeks Goal 3:: I appropriate gym strength for LE core adn posture on machines without increased pain Goal Time Frame: 4-6 Weeks Goal 4:: Pt feel 95% better in overall funciton and pain level and back to workout. Goal Time Frame: 4-6 Weeks Goal 5:: LEFS 60 Goal Time Frame: 4-6 Weeks Rehabilitation Potential Physical Therapy Diagnosis: R knee pain and slight ROM limitations effecting comfort and function. Rehabilitation Potential: Fair Anticipated Interventions Patient/Client Instruction: Educate patient on: Condition and Plan of Care For the Purpose of:: To decrease pain, To increase ROM, To improve nutrient delivery to tissue, To improve muscle performance and motor function, To improve ability of physical actions for home/community/work/leisure and To improve gait and locomotor functions Therapeutic Exercise to Include: Strength training, Flexibilty training, Passive ROM and Active ROM For the Purpose of:: To decrease pain, To increase ROM, To improve nutrient delivery to tissue, To improve muscle performance and motor function and To increase tolerance to activity/condition/position Cryotherapy (ice pack, ice massage): Yes For the Purpose of:: To decrease pain and To decrease swelling/inflammation Text: Thank you for the opportunity to evaluate your patient. For Medicare and Medicare HMO plans, please review the plan of care and approve it. It will need to be FAXED BACK to us at [phone] for Medicare purposes. For Medicare only, by signing this I certify the plan of care. Please let me know if there are questions or concerns regarding this plan of care. Physician Sig nature: Date:
--- NOTE | 2023-03-26 09:48 | HP.PTDCSUM ---
Discharge Summary D/C summary: It has been my pleasure to treat RACHAEL ROMERO referred by Dr. Davi Eugene MD, with the diagnosis of R knee pain for a total of 7 visit(s). Discharge Date: 03/26/23 Please see the following information for a summary of their discharge status. Subjective Subjective: So much better. Pain is minimal but it fatigues, still feels a lot stronger. Has all ROM. Activity at home are normal. Sleep is fine. Pain R knee: Pain Intensity (Out of 10): 0 Overall Improvement % Improvement: 100 Objective Objective/Function: 0-122 AROM without pain today R knee. Walking without antalgia, steps reciprocally with rail easily. Subjectively doing well and willing to continue gym ex 2-3x/week on own, list given. Goals Goal 1:: Get up in am without pain x 2 weeks Goal Progress: Goal Met Goal 2:: Full ROM without pain or hesitation to 125 flexion. Goal 3:: I appropriate gym strength for LE core adn posture on machines without increased pain Goal Progress: Goal Met Goal 4:: Pt feel 95% better in overall funciton and pain level and back to workout. Goal Progress: Goal Met Goal 5:: LEFS 60 Goal Progress: Goal Met Plan Plan: d/c D/C Information d/c sentence: If there are questions or concerns regarding this patient's physical therapy, please feel free to call me at [phone]. Thank you for the referral of this patient. Sincerely, Colt Falcon, DPT, OCS, CSCS Balance/Gait/Functional tests Balance/Special Test Scores Lower Extremity Functional Score: 61 Improvement % Improvement: 100
== END 2023-03-26 19:00 | disposition home or self-care (01) ==
LOC: PT 09:00
PROVIDERS: PCP Family Medicine; Referring Provider Family Medicine; Visit Provider Family Medicine
DX: M17.11 Unilateral primary osteoarthritis, right knee (principal); M25.562 Pain in left knee
CPT/HCPCS: 97110; 97161; 97164

== ENCOUNTER → 2024-08-08 | Outpatient (CLI) | payer OTHER, SELFPAY ==
--- NOTE | 2024-08-08 07:14 | BI_ITS ---
EXAM: SCRN MAMM (CAD)W/FACUNDO BILAT DATE: 08/08/2024 CLINICAL HISTORY: F, Age 63 y/o , SCREENING BREAST CANCER RISK ASSESSMENT: Not reported TECHNIQUE: Bilateral screening digital breast tomosynthesis with 2D and 3D images. Computer aided detection. COMPARISON: Prior exam(s) were compared FINDINGS: TISSUE DENSITY: The breast tissue is heterogenously dense, which may obscure small masses. Bilateral Breast Mammographic Findings: No suspicious masses, calcifications or other abnormalities are identified. BI/SCRN MAMM (CAD)W/FACUNDO BILAT IMPRESSION: OVERALL FINAL ASSESSMENT: BIRADS 1 NEGATIVE RECOMMENDATION: Routine annual follow-up in 1 Year A letter with findings and recommendations will be mailed to the patient. Reading Location: [id number]
== END | disposition home or self-care (01) ==
LOC: OPBI 07:13
PROVIDERS: PCP Family Medicine; Referring Provider Family Medicine; Visit Provider Family Medicine
DX: Z12.31 Encounter for screening mammogram for malignant neoplasm of breast (principal)
CPT/HCPCS: 77063; 77067